=== PATIENT | male | born 1945 | race Hispanic/Latino ===

== ENCOUNTER 2018-04-20 10:47 | Outpatient (CLI) | payer MEDICARE ==
--- NOTE | 2018-04-21 08:12 | XRay Report ---
CERVICAL SPINE RADIOGRAPHS INDICATION: Congenital hydrocephalus. COMPARISON: None similar. FINDINGS: AP, lateral, open mouth, swimmers' and oblique views of the cervical spine attempted, though limited due to patient positioning/on a motorized wheelchair. Obtained 6 views demonstrate dens partly obscured due to overlying structures, though grossly intact with symmetric lateral masses. Few radiopaque dental fillings. Demineralized bones. Intact craniocervical articulation on the lateral view with normal prevertebral soft tissues and the airway, though visualization upto C5 vertebral body; more inferior levels obscured due to shoulder soft tissues. Degenerative changes noted from C4 inferiorly. Bilateral C5-C6 and right C6-C7 moderate to severe neural foraminal narrowing suspected. Clear visualized lung apices. Right rotator cuff surgery. Thoracic spondylosis also noted. CONCLUSION: No definite acute cervical spine radiographic abnormality with various degenerative changes and other findings, as above. Please correlate. Thank you for the opportunity to participate in this patient's care.
== END 2018-04-20 10:48 | disposition home or self-care (01) ==
LOC: MRI 10:47
PROVIDERS: ATTEND Specialist
DX: Q03.9 Congenital hydrocephalus, unspecified (principal); M47.894 Other spondylosis, thoracic region
CPT/HCPCS: 70551; 72050